=== PATIENT | male | born 1995 | race Caucasian/White ===

== ENCOUNTER 2016-11-24 16:57 | Emergency (ER) | payer BC, OTHER ==
[~2016-11-24] VITALS: Ht 175.3 cm; Wt 72.0 kg
[2016-11-24 16:59] VITALS: BP 134/83; PULSE 68; RESP 20; TEMP 99; O2SAT 98
--- NOTE | 2016-11-24 17:43 | PD ---
HPI . depression Chief Complaint: Psychiatric Symptoms Time Seen by Provider: 17:42 Travel History International Travel<30 days: No Contact w/Intl Traveler<30days: No Traveled to known affect area: No History of Present Illness HPI 21 yr old male here with c/o being depressed and wanting to commit suicide. He says he has thought of suicide many times, but can't think of harming himself. He says he feels alone and like no one really cares about him. He tells me he recently went through a breakup and lost a lot of his friends. He is sad and tearful. He tells me that he doesn't have lots of friends who care about his well-being. He is finding himself posting messages on Facebook and [email or web address] and does not get reply from these people, which is causing him heartache. He has no other complaints. He is accompanied by his mom. He tells me that his mother is actually his adoptive parent, which also makes things difficult. He says he does not feel a connection with his family despite loving them. PFSH Past Medical History ADD: Yes ADHD: No Depression: Yes Cancer: No Cardiovascular Problems: No Diabetes: No Diminished Hearing: No Psychiatric: Yes (adhd) Migraines: No Seizures: No Thyroid Disease: No Ulcer: No Tetanus Vaccination: < 5 Years Past Surgical History Surgical History: No Previous Surgery Appendectomy: No Cholecystectomy: No Other Surgery: No Social History Alcohol Use: No Tobacco Use: No Substance Use: No Allergies-Medications (Allergen,Severity, Reaction): Uncoded Allergies: MOTRIN CHEWABLES (Adverse Reaction, Severe, SWOLLEN LIPS, 06/10/08) Reported Meds & Prescriptions Reported Meds & Active Scripts Active No Active Prescriptions or Reported Medications Review of Systems General / Constitutional: No: Fever Eyes: No: Visual changes HENT: No: Headaches Cardiovascular: No: Chest Pain or Discomfort Respiratory: No: Shortness of Breath Gastrointestinal: No: Abdominal Pain Genitourinary: No: Dysuria Musculoskeletal: No: Pain Skin: No Rash Neurologic: No: Weakness Psychiatric: Positive: Depression, Suicidal Ideations Endocrine: No: Polydipsia Hematologic/Lymphatic: No: Easy Bruising Physical Exam Narrative GENERAL: AAO x 3, no acute distress, Well-nourished, well-developed patient. SKIN: Warm and dry. No visible rashes or bruising. HEAD: Normocephalic and atraumatic. EYES: No scleral icterus. No injection or drainage. EOM intact, PERRLA ENT: No nasal drainage noted. Mucous membranes pink. Airway patent. NECK: Supple, trachea midline. No JVD. CARDIOVASCULAR: Regular rate and rhythm without murmurs, gallops, or rubs. RESPIRATORY: Breath sounds equal bilaterally. No accessory muscle use. No rhonchi or rales. GASTROINTESTINAL: Abdomen soft, non-tender, nondistended. EXTREMITIES: No cyanosis or edema. BACK: Nontender without obvious deformity. No CVA tenderness. NEURO: CN II-12 intact, cash management specialist strength normal b/l, UE and LE 5/5, no focal deficits PSYCH: AAO x 3, normal affect. Data Data Last Documented VS Vital Signs Date Time Temp Pulse Resp B/P (MAP) Pulse Ox O2 Delivery O2 Flow Rate FiO2 11/24/16 16:59 99.0 68 20 134/83 (100) 98 Room Air Orders Orders Complete Blood Count With Diff (11/24/16 18:08) Comprehensive Metabolic Panel (11/24/16 18:08) Psych Screen (11/24/16 18:08) Drug Screen, Random Urine (11/24/16 18:08) Alcohol (Ethanol) (11/24/16 18:08) Salicylates (Aspirin) (11/24/16 18:08) Tylenol (Acetaminophen) (11/24/16 18:08) Diet Regular Basic (11/25/16 Breakfast) Labs Laboratory Tests Test 11/24/16 17:45 11/24/16 18:10 White Blood Count 9.3 TH/MM3 Red Blood Count 5.63 MIL/MM3 Hemoglobin 16.7 GM/DL Hematocrit 48.3 % Mean Corpuscular Volume 85.9 FL Mean Corpuscular Hemoglobin 29.6 PG Mean Corpuscular Hemoglobin Concent 34.5 % Red Cell Distribution Width 14.5 % Platelet Count 213 TH/MM3 Mean Platelet Volume 9.4 FL Neutrophils (%) (Auto) 66.5 % Lymphocytes (%) (Auto) 21.9 % Monocytes (%) (Auto) 8.2 % Eosinophils (%) (Auto) 2.6 % Basophils (%) (Auto) 0.8 % Neutrophils # (Auto) 6.2 TH/MM3 Lymphocytes # (Auto) 2.0 TH/MM3 Monocytes # (Auto) 0.8 TH/MM3 Eosinophils # (Auto) 0.2 TH/MM3 Basophils # (Auto) 0.1 TH/MM3 CBC Comment DIFF FINAL Differential Comment Blood Urea Nitrogen 7 MG/DL Creatinine 0.86 MG/DL Random Glucose 80 MG/DL Total Protein 8.1 GM/DL Albumin 4.3 GM/DL Calcium Level 9.1 MG/DL Alkaline Phosphatase 80 U/L Aspartate Amino Transf (AST/SGOT) 17 U/L Alanine Aminotransferase (ALT/SGPT) 30 U/L Total Bilirubin 0.8 MG/DL Sodium Level 136 MEQ/L Potassium Level 3.6 MEQ/L Chloride Level 105 MEQ/L Carbon Dioxide Level 26.0 MEQ/L Anion Gap 5 MEQ/L Estimat Glomerular Filtration Rate 111 ML/MIN Salicylates Level LESS THAN 1.7 MG/DL Acetaminophen Level LESS THAN 3.0 MCG/ML Ethyl Alcohol Level LESS THAN 3 MG/DL Urine Opiates Screen NEG Urine Barbiturates Screen NEG Urine Amphetamines Screen NEG Urine Benzodiazepines Screen NEG Urine Cocaine Screen NEG Urine Cannabinoids Screen NEG MDM Medical Decision Making Medical Screen Exam Complete: Yes Emergency Medical Condition: Yes Medical Record Reviewed: Yes Differential Diagnosis Depression, suicidal ideation, adjustment disorder Narrative Course 21-year-old male here with suicidal ideation and depression. He has no medical complaints. Labs have been ordered and if they're within normal limits, patient will be medically cleared for psych screen. I spoke with patient's mom and he apparently has had issues with suicide attempts in the past. Apparently tried to overdose on medication. Therefore I added salicylate and Tylenol level. Laboratory Tests Test 11/24/16 17:45 11/24/16 18:10 White Blood Count 9.3 TH/MM3 Red Blood Count 5.63 MIL/MM3 Hemoglobin 16.7 GM/DL Hematocrit 48.3 % Mean Corpuscular Volume 85.9 FL Mean Corpuscular Hemoglobin 29.6 PG Mean Corpuscular Hemoglobin Concent 34.5 % Red Cell Distribution Width 14.5 % Platelet Count 213 TH/MM3 Mean Platelet Volume 9.4 FL Neutrophils (%) (Auto) 66.5 % Lymphocytes (%) (Auto) 21.9 % Monocytes (%) (Auto) 8.2 % Eosinophils (%) (Auto) 2.6 % Basophils (%) (Auto) 0.8 % Neutrophils # (Auto) 6.2 TH/MM3 Lymphocytes # (Auto) 2.0 TH/MM3 Monocytes # (Auto) 0.8 TH/MM3 Eosinophils # (Auto) 0.2 TH/MM3 Basophils # (Auto) 0.1 TH/MM3 CBC Comment DIFF FINAL Differential Comment Blood Urea Nitrogen 7 MG/DL Creatinine 0.86 MG/DL Random Glucose 80 MG/DL Total Protein 8.1 GM/DL Albumin 4.3 GM/DL Calcium Level 9.1 MG/DL Alkaline Phosphatase 80 U/L Aspartate Amino Transf (AST/SGOT) 17 U/L Alanine Aminotransferase (ALT/SGPT) 30 U/L Total Bilirubin 0.8 MG/DL Sodium Level 136 MEQ/L Potassium Level 3.6 MEQ/L Chloride Level 105 MEQ/L Carbon Dioxide Level 26.0 MEQ/L Anion Gap 5 MEQ/L Estimat Glomerular Filtration Rate 111 ML/MIN Salicylates Level LESS THAN 1.7 MG/DL Acetaminophen Level LESS THAN 3.0 MCG/ML Ethyl Alcohol Level LESS THAN 3 MG/DL Urine Opiates Screen NEG Urine Barbiturates Screen NEG Urine Amphetamines Screen NEG Urine Benzodiazepines Screen NEG Urine Cocaine Screen NEG Urine Cannabinoids Screen NEG Patient medically cleared for psych screen. Diagnosis Primary Impression: Suicidal ideations Scripts No Active Prescriptions or Reported Meds Condition: Stable Charlotte Kunz Nov 24, 2016 17:42
[2016-11-24 18:29] LABS: AUTOMATED NEUTROPHIL # 6.2 TH/MM3 (1.8-7.7); BASOPHIL # 0.1 TH/MM3 (0-0.2); BASOPHIL % 0.8 % (0.0-2.0); EOSINOPHIL # 0.2 TH/MM3 (0-0.4); EOSINOPHIL % 2.6 % (0.0-4.0); HEMATOCRIT 48.3 % (39.0-51.0); HEMO FLAGS DIFF FINAL; LYMPH % 21.9 % (9.0-44.0); MEAN CELL VOLUME 85.9 FL (80.0-100.0); MEAN CORPUSCULAR HEMOGLOBIN 29.6 PG (27.0-34.0); MEAN CORPUSCULAR HGB CONC 34.5 % (32.0-36.0); MONO % 8.2 % (0.0-8.0); NEUT % 66.5 % (16.0-70.0); PLATELET COUNT 213 TH/MM3 (150-450); RED BLOOD COUNT 5.63 MIL/MM3 (4.50-5.90); RED CELL DISTRIBUTION WIDTH 14.5 % (11.6-17.2); WHITE BLOOD COUNT 9.3 TH/MM3 (4.0-11.0)
[2016-11-24 19:21] LABS: ANION GAP 5 MEQ/L (5-15); AST (GOT) 17 U/L (15-37); BLOOD UREA NITROGEN 7 MG/DL (7-18); CHLORIDE 105 MEQ/L (98-107); GLOMERULAR FILTRATION RATE 111 ML/MIN (>89); POTASSIUM 3.6 MEQ/L (3.5-5.1); SODIUM (NA) 136 MEQ/L (136-145)
[2016-11-24 19:23] LABS: ALT (GPT) 30 U/L (12-78)
[2016-11-24 19:25] LABS: ALKALINE PHOSPHATASE 80 U/L (45-117); TOTAL BILIRUBIN ADULT 0.8 MG/DL (0.2-1.0)
[2016-11-24 19:27] LABS: ALCOHOL LESS THAN 3 MG/DL (0-5)
[2016-11-24 19:28] LABS: ACETAMINOPHEN LESS THAN 3.0 MCG/ML (10.0-30.0)
--- NOTE | 2016-11-24 22:53 | PD ---
Physical Exam Narrative Patient was seen by my mobile unit assistant and signed out to me. Data Data Last Documented VS Vital Signs Date Time Temp Pulse Resp B/P (MAP) Pulse Ox O2 Delivery O2 Flow Rate FiO2 11/24/16 16:59 99.0 68 20 134/83 (100) 98 Room Air Orders Orders Complete Blood Count With Diff (11/24/16 18:08) Comprehensive Metabolic Panel (11/24/16 18:08) Psych Screen (11/24/16 18:08) Drug Screen, Random Urine (11/24/16 18:08) Alcohol (Ethanol) (11/24/16 18:08) Salicylates (Aspirin) (11/24/16 18:08) Tylenol (Acetaminophen) (11/24/16 18:08) Diet Regular Basic (11/25/16 Breakfast) Diet Regular Basic (11/24/16 Dinner) Labs Laboratory Tests Test 11/24/16 17:45 11/24/16 18:10 White Blood Count 9.3 TH/MM3 Red Blood Count 5.63 MIL/MM3 Hemoglobin 16.7 GM/DL Hematocrit 48.3 % Mean Corpuscular Volume 85.9 FL Mean Corpuscular Hemoglobin 29.6 PG Mean Corpuscular Hemoglobin Concent 34.5 % Red Cell Distribution Width 14.5 % Platelet Count 213 TH/MM3 Mean Platelet Volume 9.4 FL Neutrophils (%) (Auto) 66.5 % Lymphocytes (%) (Auto) 21.9 % Monocytes (%) (Auto) 8.2 % Eosinophils (%) (Auto) 2.6 % Basophils (%) (Auto) 0.8 % Neutrophils # (Auto) 6.2 TH/MM3 Lymphocytes # (Auto) 2.0 TH/MM3 Monocytes # (Auto) 0.8 TH/MM3 Eosinophils # (Auto) 0.2 TH/MM3 Basophils # (Auto) 0.1 TH/MM3 CBC Comment DIFF FINAL Differential Comment Blood Urea Nitrogen 7 MG/DL Creatinine 0.86 MG/DL Random Glucose 80 MG/DL Total Protein 8.1 GM/DL Albumin 4.3 GM/DL Calcium Level 9.1 MG/DL Alkaline Phosphatase 80 U/L Aspartate Amino Transf (AST/SGOT) 17 U/L Alanine Aminotransferase (ALT/SGPT) 30 U/L Total Bilirubin 0.8 MG/DL Sodium Level 136 MEQ/L Potassium Level 3.6 MEQ/L Chloride Level 105 MEQ/L Carbon Dioxide Level 26.0 MEQ/L Anion Gap 5 MEQ/L Estimat Glomerular Filtration Rate 111 ML/MIN Salicylates Level LESS THAN 1.7 MG/DL Acetaminophen Level LESS THAN 3.0 MCG/ML Ethyl Alcohol Level LESS THAN 3 MG/DL Urine Opiates Screen NEG Urine Barbiturates Screen NEG Urine Amphetamines Screen NEG Urine Benzodiazepines Screen NEG Urine Cocaine Screen NEG Urine Cannabinoids Screen NEG MDM Supervised Visit with [facility]AN[facility]: Yes Narrative Course I spoke with patient's mother and patient himself. Patient states that he has suicidal thought however does not have desire to act on it. Patient states that his stupid to do anything rash. Patient's mother agreed the patient. Patient and patient's mother want to go home and follow-up with outpatient therapy. Diagnosis Primary Impression: Suicidal ideations Patient Instructions: General Instructions Additional Instruction: Advised patient to follow-up with outpatient counseling personnel. Med/Other Pt SpecificInfo: No Meds Exist/No RX given Scripts No Active Prescriptions or Reported Meds Disposition: 01 DISCHARGE HOME Condition: Stable Gabriel Rossi MD Nov 24, 2016 22:53
== END 2016-11-24 22:58 | disposition home or self-care (01) ==
LOC: NEPD 16:57
DX: R45.851 Suicidal ideations (principal); F32.9 Major depressive disorder, single episode, unspecified; Z86.59 Personal history of other mental and behavioral disorders
CPT/HCPCS: 80053; 80307; 85025; 99283